=== PATIENT | female | born 1940 | race Caucasian/White ===

== ENCOUNTER 2018-12-19 13:57 | Inpatient (IN) | payer OTHER, MEDICAID | END 2018-12-22 13:40 | disposition home or self-care (01) | LOC: ED 13:57 → DU 18:18 → ED 13:57 → DU 18:18 → ED 13:57 → DU 18:18 → ED 13:57 → DU 18:18 → ED 13:57 → DU 18:18 → ED 13:57 → DU 18:18 → ED 13:57 → DU 18:18 → ED 13:57 → DU 18:18 | DX: J18.9 Pneumonia, unspecified organism (principal); N17.0 Acute kidney failure with tubular necrosis; K85.90 Acute pancreatitis without necrosis or infection, unspecified; E87.1 Hypo-osmolality and hyponatremia; N39.0 Urinary tract infection, site not specified; J98.11 Atelectasis; E46 Unspecified protein-calorie malnutrition; I12.9 Hypertensive chronic kidney disease with stage 1 through stage 4 chronic kidney disease, or unspecified chronic kidney disease; N18.9 Chronic kidney disease, unspecified; K52.9 Noninfective gastroenteritis and colitis, unspecified; R73.03 Prediabetes; E78.5 Hyperlipidemia, unspecified; E83.41 Hypermagnesemia; E87.8 Other disorders of electrolyte and fluid balance, not elsewhere classified; E78.00 Pure hypercholesterolemia, unspecified; M81.0 Age-related osteoporosis without current pathological fracture; E86.0 Dehydration; Z68.28 Body mass index [BMI] 28.0-28.9, adult ==

== ENCOUNTER 2019-01-29 13:19 | Emergency (ER) | payer OTHER, MEDICAID ==
[~2019-01-29] VITALS: Ht 149.9 cm; Wt 66.7 kg
[~2019-01-29 13:19] MED LIST: SOD1 PO
[2019-01-29 13:37] VITALS: Ht 149.9 cm; Wt 66.7 kg
[2019-01-29 15:35] LABS: BASOPHIL % 0.7 % (0-2); PLATELET COUNT 176 x10^3mcL (130-400)
[2019-01-29 15:43] LABS: RED CELL DISTRIBUTION WIDTH 17.3 % (11.5-14.5)
[2019-01-29 15:49] LABS: ALBUMIN 3.6 g/dL (3.4-5.0); ALKALINE PHOSPHATASE 111 U/L (46-116); ALT/SGPT 13 U/L (14-59); AST/SGOT 20 U/L (15-37); BILIRUBIN TOTAL 0.26 mg/dL (0.20-1.00); CALCIUM 9.4 mg/dL (8.5-10.1); CARBON DIOXIDE 19.9 mmol/L (21-32); CHLORIDE SERUM 107 mmol/L (98-107); CREATININE SERUM 3.3 mg/dL (0.6-1.0); GLUCOSE SERUM 94 mg/dL (74-106); SODIUM SERUM 139 mmol/L (136-145)
[2019-01-29 15:56] LABS: POTASSIUM SERUM 5.6 mmol/L (3.5-5.1); TOTAL PROTEIN, SERUM 8.4 g/dL (6.4-8.2)
[2019-01-29 17:35] VITALS: BP 203/89
== END 2019-01-29 17:36 | disposition home or self-care (01) ==
LOC: ED 13:19
PROVIDERS: Emergency Medicine
DX: E87.5 Hyperkalemia (principal); N17.9 Acute kidney failure, unspecified; I10 Essential (primary) hypertension; E78.00 Pure hypercholesterolemia, unspecified
CPT/HCPCS: J1940; J3490

== ENCOUNTER 2019-05-23 14:40 | Inpatient (IN) | payer OTHER, MEDICAID ==
[~2019-05-23] VITALS: Ht 149.9 cm; Wt 65.8 kg
[2019-05-23 14:49] VITALS: Ht 149.9 cm; Wt 65.8 kg
--- NOTE | 2019-05-23 15:03 | NUR ---
EKG IN PROGRESS. PRESENTS TO ED WITH C/O EPIGASTRIC PAIN THAT RADIATES TO MID BACK AREA. PT WAS SENT FROM PCP DUE TO INCREASED PAIN OVER THE PAST THREE WEEKS. DAUGHTER IS AT BEDSIDE AND STS PT HAS NO CHANGE IN APPETITE BUT GETS VERY NAUSEAS AFTER EVERY MEAL WITH RANDOM EPISODES OF VOMITING. PER DAUGHTER, PT HAS KIDNEY FUNCTION OF 12% BUT REFUSES TO HAVE DIALYSIS. PT IS AAOX4, RESPS E/U; MILD NAUSEA AT THIS TIME WITH NO VOMITING; REPORTS BRIGHT RED BLOOD IN STOOL INTERMITTENLY; DENIES PAIN WITH URINATION. ASSISTED ONTO GURMERCER BY EMT. CONNECTED TO FULL JR. JAVA DEVELOPER.
[2019-05-23] MEDS ORDERED: AMLODIPINE BESY10 M2 PO (15:09)
[2019-05-23] MEDS ORDERED: HYDROCHLOROTH12.5 M3 PO (15:09)
[2019-05-23] MEDS ORDERED: AMLODIPINE-OLM1 EAC1 PO (15:09)
[2019-05-23] MEDS ORDERED: PROTONIX40 MG PO (15:10)
[2019-05-23] MEDS ORDERED: LIPI10 PO (15:10)
[2019-05-23 15:40] LABS: BASOPHIL % 1.8 % (0-2); PLATELET COUNT 215 x10^3mcL (130-400); RED CELL DISTRIBUTION WIDTH 13.6 % (11.5-14.5)
[2019-05-23 15:51] LABS: CALCIUM 8.4 mg/dL (8.5-10.1); CARBON DIOXIDE 24.1 mmol/L (21-32); CHLORIDE SERUM 97 mmol/L (98-107); CREATININE SERUM 3.4 mg/dL (0.6-1.0); GLUCOSE SERUM 125 mg/dL (74-106); POTASSIUM SERUM 5.4 mmol/L (3.5-5.1); SODIUM SERUM 129 mmol/L (136-145)
[2019-05-23 15:55] LABS: ALBUMIN 2.9 g/dL (3.4-5.0); ALKALINE PHOSPHATASE 100 U/L (46-116); ALT/SGPT 21 U/L (14-59); AMYLASE 91 U/L (25-115); AST/SGOT 17 U/L (15-37); BILIRUBIN TOTAL 0.2 mg/dL (0.20-1.00); LIPASE 225 IU/L (73-393); TOTAL PROTEIN, SERUM 6.4 g/dL (6.4-8.2)
--- NOTE | 2019-05-23 16:51 | NUR ---
PER , IT IS OK THAT PT HAS NOT BEEN ABLE TO GIVE URINE AT THIS TIME. SPEAKING WITH PT AND PT DAUGHTER ABOUT ADMISSION FOR PT
--- NOTE | 2019-05-23 17:51 | NUR ---
CALLED REPORT TO NIKHIL STATON IN MED-SURG
[2019-05-23 18:03] LABS: UA SPECIFIC GRAVITY <=1.005 (1.005-1.035); microscopic required? YES; urine erythrocyte NEGATIVE (NEGATIVE)
--- NOTE | 2019-05-23 18:16 | NUR ---
RECEIVED PATIENT FROM ED ACCOMPANIED BY EMT AND DAUGHTER. PATIENT ABLE TO AMBULATE WITH ASSITANCE TO BED AND USE OF CANE. IV TO LEFT HAND, NO CROWE, NO O2. PATIENT ORIENTED TO ROOM, CALLIGHT SYSTEM. BED IN LOWEST POSITION, CALL LIGHT WITHIN REACH
[2019-05-23 18:23] VITALS: BP 154/74
--- NOTE | 2019-05-23 18:30 | NUR ---
CALLED DR SPENCER TO INFORM HIM OF UA RESULTS AND POTASSIUM LEVEL OF 5.4 RECEIVED ORDERS FOR DIFLUCAN AND KAYEXULATE. PHARMASIST IMFORMED ME THAT KAYEXULATE IS UNAVAILABLE AND NEEDED TO BE CHANGED TO VELTASSA.
--- NOTE | 2019-05-23 19:34 | NUR ---
PT RECEIVED A/O X4, SWAZI SPEAKING, ABLE TO MAKE NEEDS KNOWN. MED-SURG, DENIES ANY CP/PRESSURE. PULSES PALPABLE, NO EDEMA PRESENT. BREATHING IS EVEN AND UNLABORED, NO RESP DISTRESS NOTED. ABD SOFT AND ROUND, BOWEL TONES ACTIVE X4 QUAD, DENIES ANY N/V/D. PT ADMITTED FOR GI BLEED AND GALLSTONES, NO ACTIVE BLEEDING OBSERVED. VOIDS FREELY, BRP WITH ASSIST. GENERALIZED WEAKNESS, CANE AT BEDSIDE. SKIN IS WARM AND DRY, INTACT. PT DENIES HAVING ANY PAIN AT THIS TIME. SL TO LH/LW, PATENT AND INTACT, SITE WNL. DAUGHTERS AT BEDSIDE. BED IN LOWEST SETTING, SIDE RAILS UP X2, CALL LIGHT WITHIN REACH. WILL CONT TO MONITOR.
[2019-05-23 20:12] VITALS: BP 150/71
[2019-05-24 05:31] VITALS: BP 128/62
[2019-05-24 06:09] LABS: BASOPHIL % 0.9 % (0-2); PLATELET COUNT 209 x10^3mcL (130-400); RED CELL DISTRIBUTION WIDTH 13.6 % (11.5-14.5)
[2019-05-24 06:33] LABS: ALKALINE PHOSPHATASE 100 U/L (46-116); ALT/SGPT 17 U/L (14-59); AST/SGOT 15 U/L (15-37); BILIRUBIN TOTAL 0.15 mg/dL (0.20-1.00); CALCIUM 8.9 mg/dL (8.5-10.1); CARBON DIOXIDE 19.5 mmol/L (21-32); CHLORIDE SERUM 96 mmol/L (98-107); GLUCOSE SERUM 85 mg/dL (74-106); MAGNESIUM 2.1 mg/dL (1.8-2.4); SODIUM SERUM 128 mmol/L (136-145); TOTAL PROTEIN, SERUM 6.5 g/dL (6.4-8.2)
[2019-05-24 06:47] LABS: ALBUMIN 2.8 g/dL (3.4-5.0); CREATININE SERUM 3.5 mg/dL (0.6-1.0); POTASSIUM SERUM 5.9 mmol/L (3.5-5.1)
--- NOTE | 2019-05-24 07:11 | NUR ---
CRITICAL LAB: K-5.9, TRENDING UP. DR NATALIA TOVAR, CALLBACK NUMBER LEFT. AWAITING CALL BACK AT THIS TIME.
--- NOTE | 2019-05-24 07:33 | NUR ---
PT SLEPT WELL THROUGHOUT THE EVENING. PT SITTING UP AND EATING BREAKFAST. BREATHING IS EVEN AND UNLABORED, NO RESP DISTRESS NOTED. PT DENIES HAVING ANY PAIN AT THIS TIME. PT ALSO DENIES HAVING ANY BLOODY STOOL, NO ACTIVE BLEEDING OBSERVED. NO ACUTE CHANGES ENCOUNTERED DURING SHIFT. ALL NEEDS MET. IVF INFUSING WELL TO LH/LW, SITE FREE FROM REDNESS OR SWELLING. DAUGHTER AT BEDSIDE. CALL LIGHT WITHIN REACH. CONTINUITY OF CARE ENDORSED TO AM NURSES, ALL QUESTIONS AND CONCERNS ADDRESSED.
--- NOTE | 2019-05-24 08:09 | NUR ---
RECEIVED HAND OFF REPORT FROM NIGHT NURSE, PATIENT FOUND SITTING UP IN BED EATING MEAL TRAY WITH DAUGHTER, NO COMPLAINING OF PAIN. IV TO LEFT HAND CAUSING SOME DISCOMFORT BUT FLOWING WELL WITH NS. CALL LIGHT WITHIN REACH OF PATIENT, WILL CONTINUE TO MONITOR
--- NOTE | 2019-05-24 09:05 | NUR ---
PHARMACIST SIGRID CALLED TO INFORM ME THAT KAYEXALATE IS NOT AVAILABLE AND RECOMENDED CHANGING THE ORDER TO VALTESSA PO. PHARMACIST WILL CALL DR FISHER TO INFORM HIM OF RECOMMENDATION TO CHAGE ORDER
[2019-05-24 09:13] VITALS: BP 136/51
--- NOTE | 2019-05-24 09:26 | NUR ---
DR FISHER PAGED AT THIS TIME REGARDING KAYEXALATE (UNAVAILABLE PER PHARMACY). TO GIVE RECOMMENDATION FOR JENNY.
--- NOTE | 2019-05-24 10:29 | NUR ---
ADMINISTERED MEDICATIONS PER MAR, PATIENT IV IN LEFT HAND IS POSITIONAL BUT STILL FLOWING. NO PAIN, SWELLING, REDNESS, OR LEAKING AT THE SITE. NO SIGNS OF INFILTRATION. PATIENT NOT COPLAINING OF PAIN, DAUGHTER AT BEDSIDE. CALL LIGHT WITHIN REACH
[2019-05-24] MEDS ORDERED: PROTONIX40 MG PO (10:37)
[2019-05-24 11:08] VITALS: BP 136/51
[2019-05-24 15:30] LABS: CALCIUM 9.1 mg/dL (8.5-10.1); CHLORIDE SERUM 98 mmol/L (98-107); CREATININE SERUM 3.7 mg/dL (0.6-1.0); GLUCOSE SERUM 94 mg/dL (74-106); SODIUM SERUM 131 mmol/L (136-145)
[2019-05-24 15:32] LABS: POTASSIUM SERUM 5.7 mmol/L (3.5-5.1)
--- NOTE | 2019-05-24 15:48 | NUR ---
SPOKE WITH DR FISHER REGARDING PATIENTS K 5.7. VELTASSA TO BE ORDERED. PATIENT NOT TO BE DC'D HOME TODAY. RECOMMENDED PATIENT TO BE CHANGED TO INPATIENT STATUS. DR FISHER STATES "NO" TO PLACING PATIENT INPATIENT.
--- NOTE | 2019-05-24 16:07 | NUR ---
DISCUSSED PLAN OF CARE WITH PATIENT AND FAMILY REGARDING HYPERKALEMIA AND MEDICATIONS TO BE GIVEN TO LOWER POTASSIUM LEVEL. PATIENT VERBALIZES UNDERSTANDING.
[2019-05-24 16:55] VITALS: BP 144/61
--- NOTE | 2019-05-24 17:00 | NUR ---
ADMINISTERED MEDICATIONS PER MAR. COULD NOT RECEIVE PO MEDICATIONS DUE TO VALTESA. PATIENT IS COMFORTABLE AND IV IS FLOWING WELL TO LEFT HAND, OCCASIONALLY POSITIONAL. PATIENT HAD NO OTHER COMPLAINTS AT THIS TIME, CALL MARYSOL AVILES, DAUGHTER AT BEDSIDE
--- NOTE | 2019-05-24 18:42 | NUR ---
PATIENT IV PUMP WAS BEEPING. RESET PUMP AND REINFORCED TEACHING ABOUT POSITIONING OF LEFT HAND WITH IV SITE. SITE ASSESSED, WNL, NO REDNESS, SWELLING OR PAIN. PATIENT IS UP IN CHAIR AT SIDE OF BED. INFORMED PATIENT THAT IF FAMILY DOES NOT STAY WITH HER THROUGH THE NIGHT THAT SHE NEEDSD TO USE THE CALL LIGHT FOR HELP TO THE RESTROOM. CALL LIGHT WITHIN REACH
--- NOTE | 2019-05-24 19:37 | NUR ---
RECEIVED PT FROM PREVIOUS SHIFT. AAO. MEDSURG. ROMANSH-SPEAKING. DENIES HEADACHE/DIZZINESS. DENIES PAIN. NO S/S ACUTE DISTRESS. BREATHING E/U ON RA. DENIES N/V. NO IV ACCESS AT THIS TIME, WILL ATTEMPT TO REINSERT. PT USES CANE TO AMBULATE. CALL LIGHT WITHIN REACH. SAFETY MEASURES IN PLACE. FAMILY AT BEDSIDE.
[2019-05-24 20:31] VITALS: BP 133/56
--- NOTE | 2019-05-24 20:55 | NUR ---
NEW IV INSERTED INTO RFA, #24 GAUGE WITH GOOD BLOOD RETURN AND FLUSHES WELL. IVF RESUMED AT THIS TIME.
--- NOTE | 2019-05-24 21:31 | NUR ---
PT ASSISTED TO BATHROOM. GAIT SLOW BUT STEADY. PT RETURNED TO BED, MILD SOB WITH EXERTION, NO S/S ACUTE DISTRESS. REPOSITIONED FOR COMFOERT. WILL CONTINUE TO MONITOR.
--- NOTE | 2019-05-24 23:18 | NUR ---
PT FOUND WITH IV PULLED OUT. CATHETER INTACT. RFA FREE FROM ERYTHEMA OR ECCHYMOSES. PT STATES SHE DID NOT WANT TO CALL FOR ASSISTANCE BECAUSE SHE WAS "EMBARASSED TO CALL FOR HELP". EVS NOTIFIED, ROOM CLEANED AND LINENS CHANGED. PT HAS NO IV ACCESS AT THIS TIME. PT REFUSING IVF, TOLD PT NEED FOR IV ACCESS FOR MEDICATIONS AND TREATMENT, PT AGREES TO HAVE ANOTHER IV PLACED LATER. ENCOURAGED PT TO CALL FOR ASSIST PRIOR TO AMBULATING. PT VERBALIZED UNDERSTANDING. PLACED CALL LIGHT WITHIN REACH. BED LOWEST POSITION. BED ALARM ON. WILL CONTINUE TO MONITOR CLOSELY.
--- NOTE | 2019-05-25 00:15 | NUR ---
NEW IV INSERTED INTO RFA #22 GAUGE, GOOD BLOOD RETURN AND PATENT.
--- NOTE | 2019-05-25 02:59 | NUR ---
PT RESTING IN BED WITH EYES CLOSED. NO S/S ACUTE DISTRESS. CHEST RISE EQUAL/SYMMETRIC. NO INDICATIONS OF PAIN. CALL LIGHT WITHIN REACH. SAFETY MEASURES IN PLACE. WILL CONTINUE TO MONITOR.
[2019-05-25 05:28] VITALS: BP 128/51
--- NOTE | 2019-05-25 05:51 | NUR ---
PT HAD RESTFUL NIGHT. NO ACUTE CHANGES OVERNIGHT. ALL NEEDS MET AND ATTENDED TO. NO SIGNS OF PAIN NOTED. BREATHING E/U ON RA, NO SOB OBSERVED. IV SITE CDI, SALINE-LOCKED, NO ERYTHEMA OR EDEMA NOTED. CALL LIGHT WITHIN REACH. SAFETY MEASURES IN PLACE. WILL ENDORSE CARE TO ONCOMING SHIFT.
[2019-05-25 06:14] LABS: BASOPHIL % 0.7 % (0-2); PLATELET COUNT 202 x10^3mcL (130-400); RED CELL DISTRIBUTION WIDTH 13.6 % (11.5-14.5)
[2019-05-25 06:51] LABS: ALKALINE PHOSPHATASE 87 U/L (46-116); ALT/SGPT 19 U/L (14-59); AST/SGOT 20 U/L (15-37); BILIRUBIN TOTAL 0.2 mg/dL (0.20-1.00); CALCIUM 8.9 mg/dL (8.5-10.1); CARBON DIOXIDE 19.7 mmol/L (21-32); CHLORIDE SERUM 101 mmol/L (98-107); CREATININE SERUM 3.8 mg/dL (0.6-1.0); GLUCOSE SERUM 88 mg/dL (74-106); SODIUM SERUM 132 mmol/L (136-145)
[2019-05-25 06:54] LABS: ALBUMIN 2.6 g/dL (3.4-5.0); POTASSIUM SERUM 6.1 mmol/L (3.5-5.1); TOTAL PROTEIN, SERUM 6.1 g/dL (6.4-8.2)
--- NOTE | 2019-05-25 07:15 | NUR ---
BEDSIDE REPORT GIVEN TO NIKHIL BANKS.
[2019-05-25 07:44] VITALS: BP 134/64
--- NOTE | 2019-05-25 08:00 | NUR ---
RECEIVED PATIENT ALERT AND ORIENTED TIMES FOUR. OOB AND IN A CHAIR AT THIS TIME AND HAS BEEN WITH DAUGHTER AT BEDSIDE. OVERNIGHT SHE HAS BEEN OOB AND PULLED OUT HER IV REPORTEDLY TWICE. THE PATIENT HAS SOME TRACE EDEMA TO THE LOWER EXTREMITIES WITH SOME RALES TO THE UPPER LOBES OF THE LUNGS AND A DISTENDED AND FIRM ABDOMEN. SHE DENIES PAIN OR SOB AT THIS TIME. IV INTACT AND HEPLOCKED AT THIS TIME. PATIENTS VITALS AT THIS TIME AT 96.9, 56, 18, 134/64, 96% ON ROOM AIR. PAPA HAS NOTED US OF THE GALLBLADDER SHOWING SOME STOMES. 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 PATIENT HAS BEEN NOTED TO HAVE CHRONIC KIDNEY DISEASE BUT THE PATIENT DOES NOT WANT DIALYSIS. PATIENT HAS BUN AT 57.0 AND THE CREAINTINES AT 3.8 AT THIS TIME. PATIENT HAS POTASSIUM LEVEL AT 6.1 AND HAD CALLED THE RESIDENT FOR ORDERS. PATIENT IS IN NO ACUTE PAIN OR SOB AT THIS TIME.
--- NOTE | 2019-05-25 14:33 | NUR ---
SEEN BY THE RADIO ENGINEER AND ORDER RECIEVED. PATIENT IS OPEN TO HAVING PARATINEAL DIALYSIS. PATIENT FOR PROCRIT TODAY. DAUGHTER AT BEDSIDE AND SUPPORTIVE WITH CARE.
--- NOTE | 2019-05-25 16:50 | NUR ---
RACHID MOM FOR CONSTIPATION AND WITH THE PATIENT IN THE RESTROOM STAFF WAS AYLEEN ROSENBERG NOTE BLOOD ON THE TISSUE FROM WIPING HER RECTUM. PATIENT THOUGH HAS NOT HAD A BM YEST THE POTSSIUM DID GO DOWN TO 5.5 AT THIS TIME FROM 6.1. WILL CONTINUE TO MONITOR INDICATED.
[2019-05-25 17:19] VITALS: BP 194/84
--- NOTE | 2019-05-25 17:47 | NUR ---
PATIENT HAS CONSTIPATION AND WAS IN THE RESTROOM STRAINING TO HAVE THE BM. CALLED THE PRIMARY FOR ORDERS. RECEIVED ORDER FOR FLEETS OR MINERAL ENEMA. BUT WHEN STAFF WENT TO GIVE PATIENT IS UP TO THE RESTROOM AND HAD TWO STOOLS. ADVISED THE PATIENT TO CALL THE NURSE IF SHE FEELS SHE NEEDS THE ENEMA OFFERED. WILL CONTINUE TO MONITOR AND FAMILY AT BEDSIDE AND SUPPORTIVE WITH CARE. DR AWARE OF RECENT POTASSIUM LEVEL WELL.
--- NOTE | 2019-05-25 18:32 | NUR ---
PATIENT BP IS ELEVATED DESPITE HAVING A BM SHE HAS STILL WITH ELEVATED BP OF 180/80. CALLED THE DOCTOR FOR ORDERS. PATIENT TAKES HTCZ AND NORVASC AT HOME. ZENIA ORDERED NORVASC AND TO HOLD THE HTCZ. WILL ORDER INDICATED.
--- NOTE | 2019-05-25 18:43 | NUR ---
PATIENT TO HAVE THE AMLODIPINE 10MG TO NOW AND THEN IN THE AM DAILY. PATIENT HAS BEEN TAKING AT HOME. WILL ENDORSE THIS TO THE NEXT SHIFT THE DOCTOR DID NOT WANT THE PATIENT TO RECIEVE TEHE HCTZ SHE WAS TAKING AT HOME AT THIS TIME.
--- NOTE | 2019-05-25 19:10 | NUR ---
REPORT RECIEVED FROM DAY SHIFT RN. PATIENT WAS SEEN AND IS RESTING COMFORTABLY IN BED WITH FAMILY AT BEDSIDE. NO DISTRESS NOTED. BREATHING EVEN ON ROOM AIR. NO SOB OR RESP DISTRESS NOTED. DENIES CHEST PAIN. NO C/O PAIN. DENIES N/V. ABD ROUND/SOFT. NO DISTENTION NOTED. IV TO THE RFA, SALINE LOCK. PATENT AND INTACT. NO REDNESS OR SWELLING NOTED. PATIENT REPORTED SHE HAD 5 BMS TODAY AND FEELS A LOT BETTER, SINCE PATIENT WAS CONSTIPATED FOR 5 DAYS. PATIENT IS REFUSING FLEET ENEMA AT THIS TIME. PATIENT ALSO REPORTED WHEN SHE WIPED, THERE WAS MINIMAL BLOOD, BUT NO BLOOD SEEN IN THE STOOL. INSTRUCTED PATIENT TO ASK IF SHE FEELS LIKE SHE NEEDS THE ENEMA. BP IS HIGH AT THIS TIME. DAY SHIFT RN JUST GAVE AMLODIPINE. WILL RECHECK BP LATER. EDUCATED PATIENT AND FAMILY ABOUT THE USE OF SCDS AND SCDS PLACED ON THE PATIENT. COMFORT AND SAFETY MEASURES IN PLACE. BED IS LOCKED AND IN THE LOWEST POSITION. SIDE RAILS UP X2. CALL LIGHT IS WITHIN REACH. INSTRUCTED PATIENT AND FAMILY TO CALL FOR ASSISTANCE. WILL CONTINUE TO MONITOR.
--- NOTE | 2019-05-25 20:04 | NUR ---
PATIENT REPORTED THAT SHE HAS A WATERY BM JUST NOW. STATES THERE WAS NO BLOOD IN THE STOOL. ALSO REPORTED THAT PREVIOUS BMS WERE FORMED. WILL CONTINUE TO MONITOR PATIENT.
--- NOTE | 2019-05-25 20:44 | NUR ---
GAVE PATIENT 2 WARM BLANKERS PER REQUEST.
[2019-05-25 21:01] VITALS: BP 161/67
--- NOTE | 2019-05-25 21:08 | NUR ---
BP IS 161/67 (89) AFTER ONE TIME DOSE AMLODIPINE WAS GIVEN BY DAY SHIFT RN. PATIENT DENIES HEADACHE OR ANY OTHER PAIN. NO DISTRESS NOTED. DAUGHTER AT BEDSIDE. WILL CONTINUE TO MONITOR PATIENT. CALL LIGHT IS WITHIN REACH.
--- NOTE | 2019-05-25 21:46 | NUR ---
INITIATED SEIZURE PRECAUTIONS FOR HX OF SEIZURES.
--- NOTE | 2019-05-25 22:21 | NUR ---
DR NAJERA CALLED ON AN UPDATE ON THE PATIENT. UPDATED DR NAJERA ON PATIENT'S POTASSIUM LEVEL, HIGH BP, AND BLE EDEMA. RECEIVED NEW ORDERS VIA TELEPHONE READ BACK FOR IV LASIX 40MG ONCE NOW, TO GIVE HOME BP MED HYDROCHLOROTHIAZIDE PO 12.5 MG ONCE NOW AND TO CONTINUE IT BID. VERIFIED FREQUENCY OF HYDROCHLOROTHIAZIDE WITH DAUGHTER AT BEDSIDE. WILL INPUT AND CARRY OUT ORDERS.
--- NOTE | 2019-05-25 22:50 | NUR ---
BP 127/54 (79), HR 71 GAVE LASIX 40MG SLOWLY IVP. EDUCATED PATIENT AND FAMILY ON THE REASON DR NAJERA ORDER THIS MEDICATION. HELD HYDROCHLOROTHIAZIDE 12.G MG PO ONE TIME DOSE. NO DISTRESS NOTED. NO C/O PAIN. DAUGHTER AT BEDSIDE. WILL CONTINUE TO MONITOR PATIENT AND RECHECK BP.
[2019-05-25 23:55] VITALS: BP 124/55
--- NOTE | 2019-05-25 23:55 | NUR ---
BP 124/55 [id number], HR 67 AFTER LASIX 40MG IVP. NO DISTRESS NOTED. BREATHING EVEN ON ROOM AIR SATING AT 97%. NO C/O PAIN. DAUGHTER AT BEDSIDE. SAFETY MEASURES IN PLACE. CALL LIGHT IS WITHIN REACH. WILL CONTINUE TO MONITOR.
--- NOTE | 2019-05-26 02:04 | NUR ---
PATIENT IS RESTING IN BED. DAUGHTER AT BEDSIDE. NO DISTRESS NOTED. BREATHING EVEN AND UNLABORED ON ROOM AIR. NO C/O PAIN. SAFETY PRECAUTIONS IN PLACE. CALL LIGHT IS WITHIN REACH. WILL CONTINUE TO MONITOR.
[2019-05-26 05:20] VITALS: BP 125/59
--- NOTE | 2019-05-26 05:39 | NUR ---
PATIENT SLEPT IN LONG INTERVALS THROUGHOUT THE NIGHT WITH DAUGHTER AT BEDSIDE. NO ACUTE CHANGES NOTED, BREATHING EVEN AND UNLABORED ON ROOM AIR. NO SOB OR RESP DISTRESS NOTED. NO C/O PAIN THROUGHOUT THE NIGHT. PATIENT HAD 3 BMS THROUGHOUT THE SHIFT. REPORTED THAT THERE WAS NO BLOOD IN HER STOOL. REFUSED FLEET ENEMA. STATES SHE DOES NOT NEED IT. IV TO THE RFA. SALINE LOCK. PATENT AND INTACT. NO REDNESS OR SWELLING NOTE. PATIENT AMBULATE TO THE BATHROOM WITH HER CANE. SLOW BUT STEADY GAIT NOTED. SAFETY MEASURES IN PLACE. CALL LIGHT IS WITHIN REACH. WILL CONTINUE TO MONITOR AND ENDORSE CARE TO DAY SHIFT RN/
[2019-05-26 07:15] LABS: BASOPHIL % 0.6 % (0-2); PLATELET COUNT 219 x10^3mcL (130-400); RED CELL DISTRIBUTION WIDTH 13.6 % (11.5-14.5)
[2019-05-26 07:29] LABS: IRON 31 ug/dL (50-170)
[2019-05-26 07:30] LABS: TOTAL IRON BINDING CAPACITY 221 ug/dL (250-450)
[2019-05-26 07:33] LABS: ALBUMIN 2.9 g/dL (3.4-5.0); ALKALINE PHOSPHATASE 98 U/L (46-116); ALT/SGPT 16 U/L (14-59); AST/SGOT 16 U/L (15-37); BILIRUBIN TOTAL 0.23 mg/dL (0.20-1.00); CALCIUM 9.5 mg/dL (8.5-10.1); CHLORIDE SERUM 100 mmol/L (98-107); CREATININE SERUM 3.9 mg/dL (0.6-1.0); GLUCOSE SERUM 97 mg/dL (74-106); POTASSIUM SERUM 4.9 mmol/L (3.5-5.1); SODIUM SERUM 134 mmol/L (136-145); TOTAL PROTEIN, SERUM 6.5 g/dL (6.4-8.2)
[2019-05-26 08:00] VITALS: BP 136/51
--- NOTE | 2019-05-26 08:00 | NUR ---
RAN OFF PAPERWORK ON DIALYSIS AND THE FACTS AND DIFFERANCES IN THE TREATMENT OPTIONS FOR THE FAMILY. PATIENT HAS AGREE TENTIVELY TO PERITONEAL AT [facility]. PATINE KARTIKS BEEN ADVISED SHE CAN GO HOME WHEN THE POTASSIUM IS BELOW 5.3. AWAITING LAB RESULTS AT THIS TIME LUNGS RE CLEAR AND BOWEL SOUNDS ACTIVE. ABDOMEN IS DISTENDED BUT SOFT AT THIS TIME. PATIENT HAS BEEN AMBULATORY WITH ASSIST AND GAIT HAS BEEN STEADY AND USES A WALKER HERE AND A CANE AT HOME. PER THE FAMILY SHE HAS HAD FALLS AT HOME. NO ACTIVE BLEEDING NOTED AND HAS BEEN WITHOUT NAUSEA OR VOMITING AT THIS TIME. BP IS WITHIN NORMAL RANGE AND ON HER BP MEDICAITON ORDERED. FAMILY AT BEDSIDE AND SUPPORTIVE WITH CARE.
[2019-05-26 08:17] VITALS: BP 126/55
--- NOTE | 2019-05-26 13:58 | NUR ---
GAVE PRESCRIPTIONS FOR THE PATIENT TO FILL AND PATIENT WAS DISCHARGE HOME WITH ALL BELONGINGS. PATIENT IV WAS REMOVED AND PATIENT GIVEN INSTUCTON AND EDUCATION ON DIALYSIS OPTIONS AND DIET. NO ACUTE DISTRESS AT TIME OF DISCHARGE AND TO FOLLOW UP WITH THE CARDIOPULMONARY TECHNICIAN AND EEG TECH AND TO CALL FOR APPOINTMENT.
== END 2019-05-26 13:20 | disposition home or self-care (01) | DRG 383 ==
LOC: ED 14:40 → MU 17:26
PROVIDERS: Emergency Medicine; Internal Medicine Nephrology; ADMIT Internal Medicine Pulmonary Disease
DX: K27.9 Peptic ulcer, site unspecified, unspecified as acute or chronic, without hemorrhage or perforation (principal); N17.0 Acute kidney failure with tubular necrosis; E44.0 Moderate protein-calorie malnutrition; I12.0 Hypertensive chronic kidney disease with stage 5 chronic kidney disease or end stage renal disease; N18.5 Chronic kidney disease, stage 5; E87.2 Acidosis; K59.00 Constipation, unspecified; E87.5 Hyperkalemia; K21.9 Gastro-esophageal reflux disease without esophagitis; E78.5 Hyperlipidemia, unspecified; D63.1 Anemia in chronic kidney disease; Z68.31 Body mass index [BMI] 31.0-31.9, adult
CPT/HCPCS: G0378; J0610; J0885-EC; J1940; J2405; J3490; J7030; J7060; Q0092

== ENCOUNTER 2019-12-18 11:05 | Emergency (ER) | payer OTHER, MEDICAID ==
[~2019-12-18] VITALS: Ht 149.9 cm; Wt 66.7 kg
[~2019-12-18 11:05] MED LIST changes: +AMLODIPINE BESY10 M2 PO; +AMLODIPINE-OLM1 EAC1 PO; +HYDROCHLOROTH12.5 M3 PO; +LIPI10 PO; +PROTONIX40 MG PO
[2019-12-18 11:15] VITALS: Ht 149.9 cm; Wt 66.7 kg
[2019-12-18 12:43] LABS: PLATELET COUNT 224 x10^3mcL (130-400); RED CELL DISTRIBUTION WIDTH 14.3 % (11.5-14.5)
[2019-12-18 12:58] LABS: CALCIUM 9.1 mg/dL (8.5-10.1); CHLORIDE SERUM 102 mmol/L (98-107); CREATININE SERUM 3.5 mg/dL (0.6-1.0); GLUCOSE SERUM 97 mg/dL (74-106); POTASSIUM SERUM 5.5 mmol/L (3.5-5.1); SODIUM SERUM 134 mmol/L (136-145)
[2019-12-18 13:02] LABS: ALBUMIN 3.3 g/dL (3.4-5.0); ALKALINE PHOSPHATASE 121 U/L (46-116); ALT/SGPT 44 U/L (14-59); AST/SGOT 38 U/L (15-37); BILIRUBIN TOTAL 0.2 mg/dL (0.20-1.00); CHOLESTEROL 385 mg/dL (<200); CHOLESTEROL/HDL RATIO 10.4; HDL CHOLESTEROL 37 mg/dL (40-60); LIPASE 285 IU/L (73-393); TOTAL PROTEIN, SERUM 7.5 g/dL (6.4-8.2); TRIGLYCERIDES 253 mg/dL (<150)
[2019-12-18 13:13] LABS: FREE T4 1.15 ng/dL (0.76-1.46); FREE THYROXINE INDEX 3.2 ug/dL (1.4-4.5)
[2019-12-18 13:32] LABS: T3 TOTAL 0.69 ng/mL
[2019-12-18 13:38] VITALS: BP 166/56
[2019-12-18 13:38] LABS: UA SPECIFIC GRAVITY <=1.005 (1.005-1.035); microscopic required? YES; urine erythrocyte TRACE (NEGATIVE)
== END 2019-12-18 13:38 | disposition home or self-care (01) ==
LOC: ED 11:05
PROVIDERS: Specialist
DX: E87.5 Hyperkalemia (principal); I12.9 Hypertensive chronic kidney disease with stage 1 through stage 4 chronic kidney disease, or unspecified chronic kidney disease; N18.9 Chronic kidney disease, unspecified; J45.909 Unspecified asthma, uncomplicated; E78.00 Pure hypercholesterolemia, unspecified; Z86.2 Personal history of diseases of the blood and blood-forming organs and certain disorders involving the immune mechanism
CPT/HCPCS: 36415; 36600; 83880; 84439; Q0092